=== PATIENT | male | born 1965 | race Caucasian/White ===

== ENCOUNTER 2018-07-13 07:14 | Inpatient (IN) | payer MEDICAID ==
[2018-07-13] MEDS: ASPIRIN 325 MG TAB PO (07:40)
[2018-07-13] MEDS: NITROGLYCERIN (SL) 0.4 MG TAB SL ×2 (07:40→16:36)
[2018-07-13 07:53] LABS: ADD MAN DIFF? NO
[2018-07-13 08:00] LABS: BASOPHIL # 0.1 10^3/ul (0.0-0.1); EOSINOPHILS # 0.3 10^3/ul (0.0-0.5); EOSINOPHILS % 6.1 % (0.0-7.0); HEMATOCRIT 39.1 % (42.0-52.0); HEMOGLOBIN 13.6 g/dl (14.0-18.0); LYMPHOCYTES # 1.7 10^3/ul (0.8-2.9); LYMPHOCYTES % 34.3 % (15.0-51.0); MEAN CORPUSCULAR HEMOGLOBIN 32.9 pg (29.0-33.0); MEAN CORPUSCULAR HGB CONC 34.8 g/dl (32.0-37.0); MEAN CORPUSCULAR VOLUME 94.7 fl (82.0-101.0); MEAN PLATELET VOLUME 8.4 fl (7.4-10.4); MONOCYTE # 0.8 10^3/ul (0.3-0.9); MONOCYTES % 16.6 % (0.0-11.0); NEUTROPHIL # 2.1 10^3/ul (1.6-7.5); NEUTROPHILS % 41.4 % (39.0-77.0); PLATELET COUNT 114 10^3/UL (140-415); RED BLOOD COUNT 4.13 10^6/ul (4.70-6.10); RED CELL DISTRIBUTION WIDTH 12.4 % (11.5-14.5)
[2018-07-13 08:00] LABS: WHITE BLOOD COUNT 5.1 10^3/ul (4.8-10.8)
[2018-07-13 08:17] LABS: ALANINE AMINOTRANSFERASE 89 IU/L (13-69); ALBUMIN 4.8 g/dl (3.3-4.9); ALBUMIN/GLOBULIN RATIO 1.71; ALKALINE PHOSPHATASE 69 IU/L (42-121); ANION GAP 16 (5-13); ASPARTATE AMINO TRANSFERASE 117 IU/L (15-46); BILIRUBIN,INDIRECT 0.4 mg/dl (0-1.1); BILIRUBIN,TOTAL 0.4 mg/dl (0.2-1.3); BLOOD UREA NITROGEN 8 mg/dl (7-20); CALCIUM 9.3 mg/dl (8.4-10.2); CARBON DIOXIDE 26 mmol/L (21-31); CHLORIDE 96 mmol/L (97-110); CREATINE KINASE 104 IU/L (23-200); CREATININE 0.64 mg/dl (0.61-1.24); Estimated GFR > 60 mL/min (>60); GLUCOSE 103 mg/dl (70-220); LIPASE 294 U/L (23-300); POTASSIUM 4.1 mmol/L (3.5-5.1); SODIUM 138 mmol/L (135-144); TOTAL PROTEIN 7.6 g/dl (6.1-8.1)
[2018-07-13 08:18] LABS: INR 0.92; PROTIME 12.4 Sec (11.9-14.9)
[2018-07-13 08:19] LABS: PARTIAL THROMBOPLASTIN TIME 26.8 Sec (23.0-35.0)
[2018-07-13 08:29] LABS: B-TYPE NATRIURETIC PEPTIDE 28 PG/ML (0-125); CK-MB 1.06 ng/ml (0.0-2.4); TROPONIN-I < 0.012 ng/ml (0.000-0.120)
[2018-07-13 09:42] LABS: ADD UMIC NO; UR ASCORBIC ACID NEGATIVE (NEGATIVE); UR BILIRUBIN (Dip) NEGATIVE (NEGATIVE); UR BLOOD (Dip) NEGATIVE (NEGATIVE); UR CLARITY CLEAR (CLEAR); UR COLOR COLORLESS (YELLOW); UR GLUCOSE (Dip) NEGATIVE (NEGATIVE); UR KETONES (Dip) NEGATIVE (NEGATIVE); UR LEUKOCYTE ESTERASE (Dip) NEGATIVE Leu/ul (NEGATIVE); UR NITRITE (Dip) NEGATIVE (NEGATIVE); UR SPECIFIC GRAVITY (Dip) 1.002 (1.003-1.030); UR TOTAL PROTEIN (Dip) NEGATIVE (NEGATIVE); UR UROBILINOGEN (Dip) NEGATIVE (NEGATIVE)
[2018-07-13 10:11] LABS: AMPHETAMINE/METHAMPHETAMINE Negative (NEGATIVE); BENZODIAZEPINES Negative (NEGATIVE); CANNABINOIDS Positive (NEGATIVE); COCAINE Negative (NEGATIVE); OPIATES Negative (NEGATIVE)
[2018-07-13 10:28] LABS: BARBITURATES Negative (NEGATIVE)
[2018-07-13 10:53] LABS: SALICYLATE 1.4 mg/dl (5.0-30.0)
[2018-07-13 10:57] LABS: ACETAMINOPHEN < 10.0 ug/ml (10.0-30.0)
[2018-07-13] MEDS: SOD CHLORIDE 0.9% 1,000 ML IV (16:22)
[2018-07-13] MEDS: LORAZEPAM 2 MG INJ IV ×2 (16:22→19:51)
[2018-07-13] MEDS: MAGNESIUM SULFATE 2 GM, MULTIVITAMINS 10 ML, THIAMINE 100 MG, FOLIC ACID 1 MG in SOD CH... IV (16:35)
[2018-07-13] MEDS ORDERED: ACETAMINOPHEN 325 MG TAB PO ×2 (17:00→18:30)
[2018-07-13] MEDS ORDERED: ONDANSETRON 4 MG INJ IV ×2 (17:00→18:30)
[2018-07-13] MEDS ORDERED: HYDROCODONE/APAP (5/325) TAB PO (18:30)
[2018-07-13] MEDS ORDERED: NA PHOSPHATE/BIPHOS 133 ML ENEMA PR (18:30)
[2018-07-13] MEDS ORDERED: NACL 0.9% 3 ML SYG IV (18:30)
[2018-07-13] MEDS ORDERED: ALBUTEROL/IPRATROPIUM (NEB) 3 ML AMP HHN (18:30)
[2018-07-13] MEDS ORDERED: DOCUSATE SODIUM 100 MG CAP PO (18:30)
[2018-07-13] MEDS ORDERED: morphine 2 MG INJ IV (18:30)
[2018-07-13] MEDS ORDERED: NITROGLYCERIN (SL) 0.4 MG TAB SL (18:30)
[2018-07-13] MEDS ORDERED: MAGNESIUM HYDROXIDE 30ML CUP PO (18:30)
[2018-07-13 19:24] LABS: FREE T4 (FREE THYROXINE) 0.79 ng/dl (0.64-1.79)
[2018-07-13 20:58] LABS: TROPONIN-I < 0.012 ng/ml (0.000-0.120)
[2018-07-13] MEDS: HEPARIN 5,000 UNIT/1 ML VIAL SC (21:00)
[2018-07-13] MEDS: SOD CHLORIDE 0.45% 1,000 ML IV (21:30)
[2018-07-13] MEDS: MIRTAZAPINE 15 MG TAB PO (21:31)
[2018-07-13] MEDS: CHLORDIAZEPOXIDE 25 MG CAP PO (21:31)
[2018-07-14] MEDS: hydrALAzine 20 MG INJ IV ×2 (00:21→07:36)
[2018-07-14 03:38] LABS: ADD MAN DIFF? NO
[2018-07-14 04:03] LABS: WHITE BLOOD COUNT 6.1 10^3/ul (4.8-10.8)
[2018-07-14 04:03] LABS: BASOPHILS % 0.5 % (0.0-2.0); EOSINOPHILS # 0.1 10^3/ul (0.0-0.5); EOSINOPHILS % 1.2 % (0.0-7.0); HEMATOCRIT 40.7 % (42.0-52.0); HEMOGLOBIN 14.3 g/dl (14.0-18.0); LYMPHOCYTES # 0.7 10^3/ul (0.8-2.9); LYMPHOCYTES % 11.2 % (15.0-51.0); MEAN CORPUSCULAR HEMOGLOBIN 33.2 pg (29.0-33.0); MEAN CORPUSCULAR HGB CONC 35.1 g/dl (32.0-37.0); MEAN CORPUSCULAR VOLUME 94.4 fl (82.0-101.0); MEAN PLATELET VOLUME 8.6 fl (7.4-10.4); MONOCYTE # 0.8 10^3/ul (0.3-0.9); MONOCYTES % 13.4 % (0.0-11.0); NEUTROPHIL # 4.4 10^3/ul (1.6-7.5); NEUTROPHILS % 73.4 % (39.0-77.0); PLATELET COUNT 129 10^3/UL (140-415); RED BLOOD COUNT 4.31 10^6/ul (4.70-6.10); RED CELL DISTRIBUTION WIDTH 12.4 % (11.5-14.5)
[2018-07-14 04:08] LABS: TRIGLYCERIDES 43 mg/dl (0-149)
[2018-07-14 04:08] LABS: CHOLESTEROL 278 mg/dl (100-200)
[2018-07-14 04:10] LABS: ANION GAP 9 (5-13); BLOOD UREA NITROGEN 7 mg/dl (7-20); CALCIUM 8.9 mg/dl (8.4-10.2); CARBON DIOXIDE 26 mmol/L (21-31); CHLORIDE 99 mmol/L (97-110); CREATININE 0.61 mg/dl (0.61-1.24); Estimated GFR > 60 mL/min (>60); GLUCOSE 101 mg/dl (70-220); MAGNESIUM 2.3 mg/dl (1.7-2.5); PHOSPHORUS 3.7 mg/dl (2.5-4.9); POTASSIUM 3.9 mmol/L (3.5-5.1); SODIUM 134 mmol/L (135-144)
[2018-07-14 04:21] LABS: TROPONIN-I < 0.012 ng/ml (0.000-0.120)
[2018-07-14 04:30] LABS: CHOL/HDL RATIO 2.1 RATIO; HDL CHOLESTEROL 128 mg/dl (28-71); LDL CHOLESTEROL,CALCULATED 141 mg/dl
[2018-07-14 05:01] LABS: HEMOGLOBIN A1C 5.2 % (0-5.9)
[2018-07-14] MEDS: PANTOPRAZOLE (EC) 40 MG TAB PO (05:08)
[2018-07-14] MEDS: SOD CHLORIDE 0.45% 1,000 ML IV ×2 (07:43→17:18)
[2018-07-14] MEDS: LORAZEPAM 2 MG INJ IV ×3 (08:51→23:33)
[2018-07-14] MEDS: CHLORDIAZEPOXIDE 25 MG CAP PO ×3 (08:51→20:10)
[2018-07-14] MEDS: MULTIVITAMINS 10 ML, THIAMINE 100 MG, FOLIC ACID 1 MG in SOD CHLORIDE 0.9% 1,000 ML IVPB (08:51)
[2018-07-14] MEDS: HEPARIN 5,000 UNIT/1 ML VIAL SC ×2 (08:54→20:15)
[2018-07-14 12:47] LABS: TROPONIN-I < 0.012 ng/ml (0.000-0.120)
[2018-07-14] MEDS: SERTRALINE 50 MG TAB PO (17:13)
[2018-07-14] MEDS ORDERED: HEPARIN 5,000 UNIT/0.5 ML VIAL (20:03)
[2018-07-14] MEDS: MIRTAZAPINE 15 MG TAB PO (20:10)
[2018-07-15] MEDS: PANTOPRAZOLE (EC) 40 MG TAB PO ×2 (05:07→05:14)
[2018-07-15] MEDS: hydrALAzine 20 MG INJ IV (05:14)
[2018-07-15 06:17] LABS: ADD MAN DIFF? NO
[2018-07-15 06:32] LABS: WHITE BLOOD COUNT 5.1 10^3/ul (4.8-10.8)
[2018-07-15 06:32] LABS: BASOPHILS % 0.4 % (0.0-2.0); EOSINOPHILS # 0.2 10^3/ul (0.0-0.5); EOSINOPHILS % 2.9 % (0.0-7.0); HEMOGLOBIN 13.7 g/dl (14.0-18.0); LYMPHOCYTES % 19.9 % (15.0-51.0); MEAN CORPUSCULAR HEMOGLOBIN 32.9 pg (29.0-33.0); MEAN CORPUSCULAR HGB CONC 35.1 g/dl (32.0-37.0); MEAN CORPUSCULAR VOLUME 93.8 fl (82.0-101.0); MEAN PLATELET VOLUME 9.2 fl (7.4-10.4); MONOCYTE # 0.9 10^3/ul (0.3-0.9); MONOCYTES % 16.8 % (0.0-11.0); NEUTROPHIL # 3.1 10^3/ul (1.6-7.5); NEUTROPHILS % 59.8 % (39.0-77.0); PLATELET COUNT 151 10^3/UL (140-415); RED BLOOD COUNT 4.16 10^6/ul (4.70-6.10); RED CELL DISTRIBUTION WIDTH 12.4 % (11.5-14.5)
[2018-07-15 06:37] LABS: ANION GAP 10 (5-13); BLOOD UREA NITROGEN 8 mg/dl (7-20); CALCIUM 9.2 mg/dl (8.4-10.2); CARBON DIOXIDE 23 mmol/L (21-31); CHLORIDE 101 mmol/L (97-110); CREATININE 0.67 mg/dl (0.61-1.24); Estimated GFR > 60 mL/min (>60); GLUCOSE 108 mg/dl (70-220); POTASSIUM 3.7 mmol/L (3.5-5.1); SODIUM 134 mmol/L (135-144)
[2018-07-15] MEDS: LORAZEPAM 2 MG INJ IV ×2 (07:33→21:16)
[2018-07-15] MEDS ORDERED: HEPARIN 5,000 UNIT/0.5 ML VIAL ×2 (08:56→19:44)
[2018-07-15] MEDS: SERTRALINE 50 MG TAB PO (09:00)
[2018-07-15] MEDS: CHLORDIAZEPOXIDE 25 MG CAP PO ×3 (09:00→19:59)
[2018-07-15] MEDS: MULTIVITAMINS 10 ML, THIAMINE 100 MG, FOLIC ACID 1 MG in SOD CHLORIDE 0.9% 1,000 ML IVPB (09:01)
[2018-07-15] MEDS: HEPARIN 5,000 UNIT/1 ML VIAL SC ×2 (09:05→20:14)
[2018-07-15] MEDS: SOD CHLORIDE 0.45% 1,000 ML IV ×2 (10:23→17:36)
[2018-07-15] MEDS: AMLODIPINE 5 MG TAB PO (12:05)
[2018-07-15] MEDS: MIRTAZAPINE 15 MG TAB PO (20:00)
[2018-07-16] MEDS: PANTOPRAZOLE (EC) 40 MG TAB PO (06:06)
[2018-07-16 06:16] LABS: ADD MAN DIFF? NO
[2018-07-16 06:22] LABS: BASOPHILS % 0.7 % (0.0-2.0); EOSINOPHILS # 0.2 10^3/ul (0.0-0.5); EOSINOPHILS % 3.7 % (0.0-7.0); HEMATOCRIT 37.2 % (42.0-52.0); HEMOGLOBIN 12.9 g/dl (14.0-18.0); LYMPHOCYTES % 18.3 % (15.0-51.0); MEAN CORPUSCULAR HEMOGLOBIN 32.7 pg (29.0-33.0); MEAN CORPUSCULAR HGB CONC 34.7 g/dl (32.0-37.0); MEAN CORPUSCULAR VOLUME 94.4 fl (82.0-101.0); MEAN PLATELET VOLUME 8.9 fl (7.4-10.4); MONOCYTE # 0.9 10^3/ul (0.3-0.9); MONOCYTES % 16.6 % (0.0-11.0); NEUTROPHIL # 3.3 10^3/ul (1.6-7.5); NEUTROPHILS % 60.1 % (39.0-77.0); PLATELET COUNT 146 10^3/UL (140-415); RED BLOOD COUNT 3.94 10^6/ul (4.70-6.10); RED CELL DISTRIBUTION WIDTH 11.9 % (11.5-14.5)
[2018-07-16 06:22] LABS: WHITE BLOOD COUNT 5.4 10^3/ul (4.8-10.8)
[2018-07-16 06:55] LABS: ANION GAP 10 (5-13); BLOOD UREA NITROGEN 8 mg/dl (7-20); CARBON DIOXIDE 24 mmol/L (21-31); CHLORIDE 102 mmol/L (97-110); CREATININE 0.69 mg/dl (0.61-1.24); Estimated GFR > 60 mL/min (>60); GLUCOSE 101 mg/dl (70-220); POTASSIUM 3.7 mmol/L (3.5-5.1); SODIUM 136 mmol/L (135-144)
[2018-07-16] MEDS ORDERED: HEPARIN 5,000 UNIT/0.5 ML VIAL ×2 (07:57→20:02)
[2018-07-16] MEDS: CHLORDIAZEPOXIDE 25 MG CAP PO ×3 (08:43→20:12)
[2018-07-16] MEDS: LORAZEPAM 2 MG INJ IV (08:43)
[2018-07-16] MEDS: SERTRALINE 50 MG TAB PO (08:44)
[2018-07-16] MEDS: AMLODIPINE 5 MG TAB PO (08:44)
[2018-07-16] MEDS: HEPARIN 5,000 UNIT/1 ML VIAL SC ×2 (08:51→20:11)
[2018-07-16] MEDS: MULTIVITAMINS 10 ML, THIAMINE 100 MG, FOLIC ACID 1 MG in SOD CHLORIDE 0.9% 1,000 ML IVPB (10:35)
[2018-07-16] MEDS: SOD CHLORIDE 0.45% 1,000 ML IV (16:53)
[2018-07-16] MEDS: MIRTAZAPINE 15 MG TAB PO (20:12)
[2018-07-16] MEDS: hydrALAzine 20 MG INJ IV (20:12)
[2018-07-17] MEDS: SOD CHLORIDE 0.45% 1,000 ML IV (04:43)
[2018-07-17] MEDS: PANTOPRAZOLE (EC) 40 MG TAB PO (05:49)
[2018-07-17 06:41] LABS: ADD MAN DIFF? NO
[2018-07-17 06:46] LABS: WHITE BLOOD COUNT 6.1 10^3/ul (4.8-10.8)
[2018-07-17 06:46] LABS: BASOPHILS % 0.7 % (0.0-2.0); EOSINOPHILS # 0.2 10^3/ul (0.0-0.5); EOSINOPHILS % 3.4 % (0.0-7.0); HEMATOCRIT 36.8 % (42.0-52.0); HEMOGLOBIN 12.9 g/dl (14.0-18.0); MEAN CORPUSCULAR HEMOGLOBIN 33.2 pg (29.0-33.0); MEAN CORPUSCULAR HGB CONC 35.1 g/dl (32.0-37.0); MEAN CORPUSCULAR VOLUME 94.6 fl (82.0-101.0); MEAN PLATELET VOLUME 8.4 fl (7.4-10.4); MONOCYTE # 1.1 10^3/ul (0.3-0.9); MONOCYTES % 18.3 % (0.0-11.0); NEUTROPHIL # 3.7 10^3/ul (1.6-7.5); NEUTROPHILS % 60.9 % (39.0-77.0); PLATELET COUNT 157 10^3/UL (140-415); RED BLOOD COUNT 3.89 10^6/ul (4.70-6.10); RED CELL DISTRIBUTION WIDTH 12.3 % (11.5-14.5)
[2018-07-17 07:08] LABS: ANION GAP 8 (5-13); BLOOD UREA NITROGEN 6 mg/dl (7-20); CARBON DIOXIDE 26 mmol/L (21-31); CHLORIDE 101 mmol/L (97-110); CREATININE 0.79 mg/dl (0.61-1.24); Estimated GFR > 60 mL/min (>60); GLUCOSE 106 mg/dl (70-220); POTASSIUM 3.8 mmol/L (3.5-5.1); SODIUM 135 mmol/L (135-144)
[2018-07-17] MEDS ORDERED: HEPARIN 5,000 UNIT/0.5 ML VIAL (08:01)
[2018-07-17] MEDS: MULTIVITAMINS 10 ML, THIAMINE 100 MG, FOLIC ACID 1 MG in SOD CHLORIDE 0.9% 1,000 ML IVPB (08:23)
[2018-07-17] MEDS: CHLORDIAZEPOXIDE 25 MG CAP PO ×2 (08:23→12:33)
[2018-07-17] MEDS: SERTRALINE 50 MG TAB PO (08:23)
[2018-07-17] MEDS: AMLODIPINE 5 MG TAB PO (08:24)
[2018-07-17] MEDS: HEPARIN 5,000 UNIT/1 ML VIAL SC (08:29)
== END 2018-07-17 15:59 | disposition home or self-care (01) | DRG 897 ==
LOC: E/R 07:14 → TEL 16:38
DX: F10.239 Alcohol dependence with withdrawal, unspecified (principal); R45.851 Suicidal ideations; F33.9 Major depressive disorder, recurrent, unspecified; M94.0 Chondrocostal junction syndrome [Tietze]; Y90.7 Blood alcohol level of 200-239 mg/100 ml; F10.229 Alcohol dependence with intoxication, unspecified; Z59.0 Homelessness; I10 Essential (primary) hypertension
CPT/HCPCS: 36415; 71045; 80048; 80053; 80061; 80307; 81003; 82550; 82553; 83036; 83690; 83735; 83880; 84100; 84439; 84443; 84484; 85025; 85610; 85730; 87086; 93005; 96374; 96375; 97161; 99285-25

== ENCOUNTER 2018-09-29 16:57 | Inpatient (IN) | payer MEDICAID ==
[2018-09-29] MEDS: morphine 4 MG/ML VIAL IV (18:44)
[2018-09-29 18:47] LABS: ADD MAN DIFF? NO
[2018-09-29] MEDS: LABETALOL HCL 20MG INJ IV (18:47)
[2018-09-29 19:06] LABS: ALANINE AMINOTRANSFERASE 127 IU/L (13-69); ALBUMIN 5.1 g/dl (3.3-4.9); ALBUMIN/GLOBULIN RATIO 1.27; ALKALINE PHOSPHATASE 104 IU/L (42-121); ANION GAP 15 (5-13); ASPARTATE AMINO TRANSFERASE 174 IU/L (15-46); BILIRUBIN,INDIRECT 0.9 mg/dl (0-1.1); BILIRUBIN,TOTAL 0.9 mg/dl (0.2-1.3); BLOOD UREA NITROGEN 5 mg/dl (7-20); CALCIUM 10.6 mg/dl (8.4-10.2); CARBON DIOXIDE 29 mmol/L (21-31); CHLORIDE 90 mmol/L (97-110); CREATININE 0.65 mg/dl (0.61-1.24); Estimated GFR > 60 mL/min (>60); GLUCOSE 138 mg/dl (70-220); POTASSIUM 3.4 mmol/L (3.5-5.1); SODIUM 134 mmol/L (135-144); TOTAL PROTEIN 9.1 g/dl (6.1-8.1)
[2018-09-29 19:17] LABS: B-TYPE NATRIURETIC PEPTIDE 379 PG/ML (0-125); TROPONIN-I < 0.012 ng/ml (0.000-0.120)
[2018-09-29 19:29] LABS: ABNORMAL IP MESSAGE 1; BASOPHILS % 0.3 % (0.0-2.0); EOSINOPHILS % 0.1 % (0.0-7.0); HEMATOCRIT 41.5 % (42.0-52.0); HEMOGLOBIN 14.7 g/dl (14.0-18.0); LYMPHOCYTES # 0.3 10^3/ul (0.8-2.9); LYMPHOCYTES % 4.2 % (15.0-51.0); MEAN CORPUSCULAR HEMOGLOBIN 32.6 pg (29.0-33.0); MEAN CORPUSCULAR HGB CONC 35.4 g/dl (32.0-37.0); MEAN PLATELET VOLUME 8.9 fl (7.4-10.4); MONOCYTE # 1.1 10^3/ul (0.3-0.9); MONOCYTES % 14.2 % (0.0-11.0); NEUTROPHILS % 80.8 % (39.0-77.0); PLATELET COUNT 176 10^3/UL (140-415); POSITIVE DIFF @See below; RED BLOOD COUNT 4.51 10^6/ul (4.70-6.10)
[2018-09-29 19:29] LABS: WHITE BLOOD COUNT 7.4 10^3/ul (4.8-10.8)
[2018-09-29 19:30] LABS: INR 0.93; PARTIAL THROMBOPLASTIN TIME 25.8 Sec (23.0-35.0); PROTIME 12.6 Sec (11.9-14.9)
[2018-09-29] MEDS: IOHEXOL 300MG/ML 150 ML BTL (20:44)
[2018-09-29] MEDS: SOD CHLORIDE 0.9% 100 ML (20:44)
[2018-09-29] MEDS ORDERED: NACL 0.9% 3 ML SYG IV (22:00)
[2018-09-29] MEDS ORDERED: ONDANSETRON 4 MG INJ IV ×2 (22:00)
[2018-09-29] MEDS ORDERED: morphine 2 MG INJ IV (22:00)
[2018-09-29] MEDS ORDERED: NITROGLYCERIN (SL) 0.4 MG TAB SL (22:00)
[2018-09-29] MEDS ORDERED: ACETAMINOPHEN 325 MG TAB PO (22:00)
[2018-09-29] MEDS ORDERED: DOCUSATE SODIUM 100 MG CAP PO (22:00)
[2018-09-29] MEDS ORDERED: BISACODYL (EC) 5 MG TAB PO (22:00)
[2018-09-29] MEDS: SOD CHLORIDE 0.9% 250 ML IV (22:06)
[2018-09-29] MEDS: hydrALAzine 20 MG INJ IV (22:27)
[2018-09-29 22:31] LABS: ETHANOL < 10.0 mg/dl (0-0)
[2018-09-29] MEDS: CHLORDIAZEPOXIDE 25 MG CAP PO (23:51)
[2018-09-30 00:54] LABS: CREATINE KINASE 420 IU/L (23-200)
[2018-09-30 01:05] LABS: CK INDEX 0.8; TROPONIN-I < 0.012 ng/ml (0.000-0.120)
[2018-09-30 01:06] LABS: CK-MB 3.49 ng/ml (0.0-2.4)
[2018-09-30] MEDS: LISINOPRIL 20 MG TAB PO (01:07)
[2018-09-30] MEDS: MULTIVITAMINS 10 ML, FOLIC ACID 1 MG in SOD CHLORIDE 0.9% 1,000 ML IVPB ×2 (01:09→08:11)
[2018-09-30] MEDS: morphine 4 MG/ML VIAL IV ×3 (01:14→20:18)
[2018-09-30 06:05] LABS: ADD MAN DIFF? NO
[2018-09-30 06:12] LABS: WHITE BLOOD COUNT 6.3 10^3/ul (4.8-10.8)
[2018-09-30 06:12] LABS: BASOPHILS % 0.2 % (0.0-2.0); EOSINOPHILS # 0.1 10^3/ul (0.0-0.5); EOSINOPHILS % 1.1 % (0.0-7.0); HEMATOCRIT 37.9 % (42.0-52.0); HEMOGLOBIN 13.4 g/dl (14.0-18.0); LYMPHOCYTES # 0.7 10^3/ul (0.8-2.9); LYMPHOCYTES % 10.3 % (15.0-51.0); MEAN CORPUSCULAR HGB CONC 35.4 g/dl (32.0-37.0); MEAN CORPUSCULAR VOLUME 93.3 fl (82.0-101.0); MEAN PLATELET VOLUME 8.8 fl (7.4-10.4); MONOCYTE # 1.1 10^3/ul (0.3-0.9); MONOCYTES % 17.6 % (0.0-11.0); NEUTROPHIL # 4.4 10^3/ul (1.6-7.5); NEUTROPHILS % 70.5 % (39.0-77.0); PLATELET COUNT 143 10^3/UL (140-415); RED BLOOD COUNT 4.06 10^6/ul (4.70-6.10)
[2018-09-30 06:34] LABS: CREATINE KINASE 338 IU/L (23-200)
[2018-09-30 06:46] LABS: CK INDEX 0.6; TROPONIN-I 0.013 ng/ml (0.000-0.120)
[2018-09-30 06:50] LABS: ALANINE AMINOTRANSFERASE 97 IU/L (13-69); ALBUMIN/GLOBULIN RATIO 1.25; ALKALINE PHOSPHATASE 64 IU/L (42-121); ANION GAP 15 (5-13); ASPARTATE AMINO TRANSFERASE 98 IU/L (15-46); BILIRUBIN,INDIRECT 1.5 mg/dl (0-1.1); BILIRUBIN,TOTAL 1.5 mg/dl (0.2-1.3); BLOOD UREA NITROGEN 4 mg/dl (7-20); CALCIUM 9.6 mg/dl (8.4-10.2); CARBON DIOXIDE 31 mmol/L (21-31); CHLORIDE 91 mmol/L (97-110); CHOL/HDL RATIO 2.5 RATIO; CHOLESTEROL 221 mg/dl (100-200); CREATININE 0.58 mg/dl (0.61-1.24); Estimated GFR > 60 mL/min (>60); GLUCOSE 111 mg/dl (70-220); HDL CHOLESTEROL 88 mg/dl (28-71); LDL CHOLESTEROL,CALCULATED 120 mg/dl; POTASSIUM 3.1 mmol/L (3.5-5.1); SODIUM 137 mmol/L (135-144); TOTAL PROTEIN 7.2 g/dl (6.1-8.1); TRIGLYCERIDES 65 mg/dl (0-149)
[2018-09-30 07:22] LABS: HEMOGLOBIN A1C 5.3 % (0-5.9)
[2018-09-30] MEDS: POTASSIUM CHLORIDE (SR) 20 MEQ TAB PO (07:47)
[2018-09-30] MEDS: THIAMINE 100 MG TAB PO (08:29)
[2018-09-30] MEDS: MULTIVITAMINS THERAPEUTIC TAB PO (08:29)
[2018-09-30] MEDS: LISINOPRIL 10 MG TAB PO (08:30)
[2018-09-30] MEDS: FOLIC ACID 1 MG TAB PO (08:30)
[2018-09-30] MEDS: SERTRALINE 50 MG TAB PO (08:30)
[2018-09-30] MEDS: CHLORDIAZEPOXIDE 25 MG CAP PO ×4 (08:31→22:55)
[2018-09-30] MEDS: ENOXAPARIN 40 MG/0.4 ML SYG SC (08:41)
[2018-09-30] MEDS: ACETAMINOPHEN 325 MG TAB PO (13:04)
[2018-09-30] MEDS: MIRTAZAPINE 15 MG TAB PO (20:17)
[2018-10-01 06:33] LABS: ADD MAN DIFF? NO
[2018-10-01 06:52] LABS: BASOPHILS % 0.2 % (0.0-2.0); EOSINOPHILS # 0.1 10^3/ul (0.0-0.5); HEMOGLOBIN 12.7 g/dl (14.0-18.0); LYMPHOCYTES # 0.8 10^3/ul (0.8-2.9); LYMPHOCYTES % 12.2 % (15.0-51.0); MEAN CORPUSCULAR HEMOGLOBIN 32.7 pg (29.0-33.0); MEAN CORPUSCULAR HGB CONC 34.3 g/dl (32.0-37.0); MEAN CORPUSCULAR VOLUME 95.4 fl (82.0-101.0); MEAN PLATELET VOLUME 9.3 fl (7.4-10.4); MONOCYTE # 0.9 10^3/ul (0.3-0.9); NEUTROPHIL # 4.7 10^3/ul (1.6-7.5); NEUTROPHILS % 71.1 % (39.0-77.0); PLATELET COUNT 144 10^3/UL (140-415); RED BLOOD COUNT 3.88 10^6/ul (4.70-6.10); RED CELL DISTRIBUTION WIDTH 11.9 % (11.5-14.5)
[2018-10-01 06:52] LABS: WHITE BLOOD COUNT 6.6 10^3/ul (4.8-10.8)
[2018-10-01 07:32] LABS: ALANINE AMINOTRANSFERASE 73 IU/L (13-69); ALBUMIN 3.8 g/dl (3.3-4.9); ALBUMIN/GLOBULIN RATIO 1.18; ALKALINE PHOSPHATASE 68 IU/L (42-121); ANION GAP 12 (5-13); ASPARTATE AMINO TRANSFERASE 77 IU/L (15-46); BLOOD UREA NITROGEN 5 mg/dl (7-20); CALCIUM 9.5 mg/dl (8.4-10.2); CARBON DIOXIDE 29 mmol/L (21-31); CHLORIDE 95 mmol/L (97-110); CREATININE 0.82 mg/dl (0.61-1.24); Estimated GFR > 60 mL/min (>60); GLUCOSE 104 mg/dl (70-220); POTASSIUM 3.4 mmol/L (3.5-5.1); SODIUM 136 mmol/L (135-144)
[2018-10-01 07:40] LABS: MAGNESIUM 1.9 mg/dl (1.7-2.5)
[2018-10-01 07:40] LABS: PHOSPHORUS 4.3 mg/dl (2.5-4.9)
[2018-10-01] MEDS: FOLIC ACID 1 MG TAB PO (08:24)
[2018-10-01] MEDS: MULTIVITAMINS THERAPEUTIC TAB PO (08:24)
[2018-10-01] MEDS: CHLORDIAZEPOXIDE 25 MG CAP PO ×5 (08:24→23:51)
[2018-10-01] MEDS: SERTRALINE 50 MG TAB PO (08:25)
[2018-10-01] MEDS: LISINOPRIL 10 MG TAB PO (08:25)
[2018-10-01] MEDS: THIAMINE 100 MG TAB PO (08:25)
[2018-10-01] MEDS: ENOXAPARIN 40 MG/0.4 ML SYG SC (08:32)
[2018-10-01] MEDS: morphine 4 MG/ML VIAL IV ×2 (14:55→21:00)
[2018-10-01] MEDS: POTASSIUM CHLORIDE (SR) 20 MEQ TAB PO (16:10)
[2018-10-01] MEDS: AMLODIPINE 5 MG TAB PO (16:11)
[2018-10-01] MEDS: MIRTAZAPINE 15 MG TAB PO (20:59)
[2018-10-01] MEDS: CLOTRIMAZOLE 1% 30 GM CR TOP (20:59)
[2018-10-02 06:50] LABS: ADD MAN DIFF? NO
[2018-10-02 06:52] LABS: WHITE BLOOD COUNT 6.3 10^3/ul (4.8-10.8)
[2018-10-02 06:52] LABS: BASOPHILS % 0.5 % (0.0-2.0); EOSINOPHILS # 0.2 10^3/ul (0.0-0.5); HEMATOCRIT 39.2 % (42.0-52.0); HEMOGLOBIN 13.7 g/dl (14.0-18.0); LYMPHOCYTES % 15.2 % (15.0-51.0); MEAN CORPUSCULAR HEMOGLOBIN 33.2 pg (29.0-33.0); MEAN CORPUSCULAR HGB CONC 34.9 g/dl (32.0-37.0); MEAN CORPUSCULAR VOLUME 94.9 fl (82.0-101.0); MONOCYTE # 0.9 10^3/ul (0.3-0.9); MONOCYTES % 14.9 % (0.0-11.0); NEUTROPHIL # 4.2 10^3/ul (1.6-7.5); NEUTROPHILS % 65.9 % (39.0-77.0); PLATELET COUNT 147 10^3/UL (140-415); RED BLOOD COUNT 4.13 10^6/ul (4.70-6.10); RED CELL DISTRIBUTION WIDTH 11.9 % (11.5-14.5)
[2018-10-02 07:16] LABS: ALANINE AMINOTRANSFERASE 66 IU/L (13-69); ALBUMIN 3.9 g/dl (3.3-4.9); ALBUMIN/GLOBULIN RATIO 1.21; ALKALINE PHOSPHATASE 68 IU/L (42-121); ANION GAP 11 (5-13); ASPARTATE AMINO TRANSFERASE 74 IU/L (15-46); BILIRUBIN,INDIRECT 0.7 mg/dl (0-1.1); BILIRUBIN,TOTAL 0.7 mg/dl (0.2-1.3); BLOOD UREA NITROGEN 7 mg/dl (7-20); CALCIUM 9.5 mg/dl (8.4-10.2); CARBON DIOXIDE 28 mmol/L (21-31); CHLORIDE 97 mmol/L (97-110); CREATININE 0.75 mg/dl (0.61-1.24); Estimated GFR > 60 mL/min (>60); GLUCOSE 107 mg/dl (70-220); POTASSIUM 3.7 mmol/L (3.5-5.1); SODIUM 136 mmol/L (135-144); TOTAL PROTEIN 7.1 g/dl (6.1-8.1)
[2018-10-02] MEDS: MULTIVITAMINS THERAPEUTIC TAB PO (08:22)
[2018-10-02] MEDS: SERTRALINE 50 MG TAB PO (08:22)
[2018-10-02] MEDS: THIAMINE 100 MG TAB PO (08:22)
[2018-10-02] MEDS: CLOTRIMAZOLE 1% 30 GM CR TOP ×2 (08:23→20:22)
[2018-10-02] MEDS: FOLIC ACID 1 MG TAB PO (08:23)
[2018-10-02] MEDS: AMMONIUM LACTATE 12% 225 GM LOT TOP (08:26)
[2018-10-02] MEDS: CHLORDIAZEPOXIDE 25 MG CAP PO ×3 (08:26→20:21)
[2018-10-02] MEDS: AMLODIPINE 5 MG TAB PO (08:26)
[2018-10-02] MEDS: ENOXAPARIN 40 MG/0.4 ML SYG SC (08:30)
[2018-10-02] MEDS ORDERED: LISINOPRIL 20 MG TAB PO (09:00)
[2018-10-02] MEDS: morphine 4 MG/ML VIAL IV ×3 (12:55→21:53)
[2018-10-02] MEDS: MIRTAZAPINE 15 MG TAB PO (20:21)
[2018-10-03] MEDS: CLOTRIMAZOLE 1% 30 GM CR TOP ×2 (09:00→21:48)
[2018-10-03] MEDS: AMMONIUM LACTATE 12% 225 GM LOT TOP (09:00)
[2018-10-03] MEDS: MULTIVITAMINS THERAPEUTIC TAB PO (10:22)
[2018-10-03] MEDS: SERTRALINE 50 MG TAB PO (10:22)
[2018-10-03] MEDS: AMLODIPINE 5 MG TAB PO (10:23)
[2018-10-03] MEDS: FOLIC ACID 1 MG TAB PO (10:23)
[2018-10-03] MEDS: ENOXAPARIN 40 MG/0.4 ML SYG SC (10:32)
[2018-10-03] MEDS: LORAZEPAM 2 MG INJ IV (10:52)
[2018-10-03] MEDS: morphine LIQ (10 MG/5 ML) CUP PO ×2 (17:59→23:40)
[2018-10-03] MEDS: MIRTAZAPINE 15 MG TAB PO (21:47)
[2018-10-04] MEDS: CLOTRIMAZOLE 1% 30 GM CR TOP ×2 (09:00→20:34)
[2018-10-04] MEDS: AMMONIUM LACTATE 12% 225 GM LOT TOP (09:00)
[2018-10-04] MEDS: AMLODIPINE 5 MG TAB PO (09:18)
[2018-10-04] MEDS: MULTIVITAMINS THERAPEUTIC TAB PO (09:18)
[2018-10-04] MEDS: FOLIC ACID 1 MG TAB PO (09:18)
[2018-10-04] MEDS: SERTRALINE 50 MG TAB PO (09:18)
[2018-10-04] MEDS: morphine LIQ (10 MG/5 ML) CUP PO ×3 (09:19→18:05)
[2018-10-04] MEDS: ENOXAPARIN 40 MG/0.4 ML SYG SC (10:29)
[2018-10-04] MEDS: MIRTAZAPINE 15 MG TAB PO (20:34)
[2018-10-05] MEDS: FOLIC ACID 1 MG TAB PO (09:39)
[2018-10-05] MEDS: MULTIVITAMINS THERAPEUTIC TAB PO (09:39)
[2018-10-05] MEDS: SERTRALINE 50 MG TAB PO (09:39)
[2018-10-05] MEDS: AMLODIPINE 5 MG TAB PO (09:39)
[2018-10-05] MEDS: morphine LIQ (10 MG/5 ML) CUP PO ×4 (09:40→22:38)
[2018-10-05] MEDS: CLOTRIMAZOLE 1% 30 GM CR TOP ×2 (09:40→21:17)
[2018-10-05] MEDS: AMMONIUM LACTATE 12% 225 GM LOT TOP (09:40)
[2018-10-05] MEDS: ENOXAPARIN 40 MG/0.4 ML SYG SC (09:46)
[2018-10-05] MEDS: MIRTAZAPINE 15 MG TAB PO (21:15)
[2018-10-06] MEDS: morphine LIQ (10 MG/5 ML) CUP PO ×4 (05:42→20:17)
[2018-10-06] MEDS: FOLIC ACID 1 MG TAB PO (08:27)
[2018-10-06] MEDS: MULTIVITAMINS THERAPEUTIC TAB PO (08:27)
[2018-10-06] MEDS: SERTRALINE 50 MG TAB PO (08:27)
[2018-10-06] MEDS: AMLODIPINE 5 MG TAB PO (08:28)
[2018-10-06] MEDS: ENOXAPARIN 40 MG/0.4 ML SYG SC (08:28)
[2018-10-06] MEDS: CLOTRIMAZOLE 1% 30 GM CR TOP ×2 (08:32→20:20)
[2018-10-06] MEDS: AMMONIUM LACTATE 12% 225 GM LOT TOP (08:32)
[2018-10-06] MEDS: MIRTAZAPINE 15 MG TAB PO (20:19)
[2018-10-07] MEDS: morphine LIQ (10 MG/5 ML) CUP PO ×6 (00:20→21:34)
[2018-10-07] MEDS: ENOXAPARIN 40 MG/0.4 ML SYG SC (08:59)
[2018-10-07] MEDS: MULTIVITAMINS THERAPEUTIC TAB PO (08:59)
[2018-10-07] MEDS: SERTRALINE 50 MG TAB PO (08:59)
[2018-10-07] MEDS: FOLIC ACID 1 MG TAB PO (08:59)
[2018-10-07] MEDS: AMMONIUM LACTATE 12% 225 GM LOT TOP (09:00)
[2018-10-07] MEDS: AMLODIPINE 5 MG TAB PO (09:00)
[2018-10-07] MEDS: CLOTRIMAZOLE 1% 30 GM CR TOP ×2 (09:00→21:37)
[2018-10-07] MEDS: NEOMYC/POLYMYX/BACIT 30 GM OINT TOP (09:00)
[2018-10-07] MEDS: MIRTAZAPINE 15 MG TAB PO (21:34)
[2018-10-08] MEDS: morphine LIQ (10 MG/5 ML) CUP PO ×6 (01:34→23:33)
[2018-10-08] MEDS: ENOXAPARIN 40 MG/0.4 ML SYG SC (08:11)
[2018-10-08] MEDS: AMLODIPINE 5 MG TAB PO (08:12)
[2018-10-08] MEDS: NEOMYC/POLYMYX/BACIT 30 GM OINT TOP (08:12)
[2018-10-08] MEDS: MULTIVITAMINS THERAPEUTIC TAB PO (08:12)
[2018-10-08] MEDS: FOLIC ACID 1 MG TAB PO (08:12)
[2018-10-08] MEDS: SERTRALINE 50 MG TAB PO (08:12)
[2018-10-08] MEDS: CLOTRIMAZOLE 1% 30 GM CR TOP ×2 (08:13→20:42)
[2018-10-08] MEDS: AMMONIUM LACTATE 12% 225 GM LOT TOP (08:13)
[2018-10-08] MEDS: MIRTAZAPINE 15 MG TAB PO (20:41)
[2018-10-09] MEDS: morphine LIQ (10 MG/5 ML) CUP PO ×3 (06:00→14:49)
[2018-10-09] MEDS: ENOXAPARIN 40 MG/0.4 ML SYG SC (09:17)
[2018-10-09] MEDS: FOLIC ACID 1 MG TAB PO (09:21)
[2018-10-09] MEDS: SERTRALINE 50 MG TAB PO (09:21)
[2018-10-09] MEDS: MULTIVITAMINS THERAPEUTIC TAB PO (09:21)
[2018-10-09] MEDS: AMLODIPINE 5 MG TAB PO (09:22)
[2018-10-09] MEDS: CLOTRIMAZOLE 1% 30 GM CR TOP (10:00)
[2018-10-09] MEDS: NEOMYC/POLYMYX/BACIT 30 GM OINT TOP (10:00)
[2018-10-09] MEDS: AMMONIUM LACTATE 12% 225 GM LOT TOP (10:00)
== END 2018-10-09 17:20 | disposition home or self-care (01) | DRG 313 ==
LOC: E/R 16:57 → PP2 10-05 13:23 → TEL 21:51
PROC: B40D1ZZ Plain Radiography of Aorta and Bilateral Lower Extremity Arteries using Low Osmolar Contrast (ICD-10-PCS; 2018-09-29)
PROC: 0HBMXZX Excision of Right Foot Skin, External Approach, Diagnostic (ICD-10-PCS; principal; 2018-10-01)
DX: R07.89 Other chest pain (principal); F10.239 Alcohol dependence with withdrawal, unspecified; I16.0 Hypertensive urgency; I10 Essential (primary) hypertension; F32.9 Major depressive disorder, single episode, unspecified; K76.0 Fatty (change of) liver, not elsewhere classified; Z91.14 Patient's other noncompliance with medication regimen; E78.5 Hyperlipidemia, unspecified; Z59.0 Homelessness; B35.3 Tinea pedis; B35.1 Tinea unguium; G62.9 Polyneuropathy, unspecified; E87.6 Hypokalemia; F41.9 Anxiety disorder, unspecified; M79.605 Pain in left leg; M79.604 Pain in right leg; N40.0 Benign prostatic hyperplasia without lower urinary tract symptoms; L98.9 Disorder of the skin and subcutaneous tissue, unspecified; F10.20 Alcohol dependence, uncomplicated
CPT/HCPCS: 36415; 71045; 71275; 73630; 75635; 80053; 80061; 80307; 82550; 82553; 83036; 83735; 83880; 84100; 84443; 84484; 85025; 85610; 85730; 88305; 93005; 93306; 96374; 96375; 97110; 97116; 97161; 97530; 99291-25; G0378

== ENCOUNTER 2018-10-14 06:59 | Emergency (ER) | payer MEDICAID | END 2018-10-14 07:45 | disposition home or self-care (01) | LOC: E/R 06:59 → FTE 07:45 | DX: Z76.0 Encounter for issue of repeat prescription (principal) | CPT/HCPCS: 99281; Z7502 ==

== ENCOUNTER 2018-11-02 15:20 | Inpatient (IN) | payer MEDICAID ==
[2018-11-02 15:52] LABS: ADD MAN DIFF? NO
[2018-11-02 16:01] LABS: BASOPHILS % 0.3 % (0.0-2.0); EOSINOPHILS # 0.1 10^3/ul (0.0-0.5); EOSINOPHILS % 1.7 % (0.0-7.0); HEMATOCRIT 42.9 % (42.0-52.0); HEMOGLOBIN 14.6 g/dl (14.0-18.0); LYMPHOCYTES # 1.4 10^3/ul (0.8-2.9); LYMPHOCYTES % 23.5 % (15.0-51.0); MEAN CORPUSCULAR HEMOGLOBIN 32.1 pg (29.0-33.0); MEAN CORPUSCULAR VOLUME 94.3 fl (82.0-101.0); MEAN PLATELET VOLUME 8.6 fl (7.4-10.4); MONOCYTE # 0.5 10^3/ul (0.3-0.9); MONOCYTES % 8.3 % (0.0-11.0); NEUTROPHIL # 3.8 10^3/ul (1.6-7.5); NEUTROPHILS % 65.9 % (39.0-77.0); PLATELET COUNT 151 10^3/UL (140-415); RED BLOOD COUNT 4.55 10^6/ul (4.70-6.10)
[2018-11-02 16:01] LABS: WHITE BLOOD COUNT 5.8 10^3/ul (4.8-10.8)
[2018-11-02 16:10] LABS: ANION GAP 11 (5-13); BLOOD UREA NITROGEN 4 mg/dl (7-20); CALCIUM 9.2 mg/dl (8.4-10.2); CARBON DIOXIDE 27 mmol/L (21-31); CHLORIDE 101 mmol/L (97-110); CREATININE 0.71 mg/dl (0.61-1.24); Estimated GFR > 60 mL/min (>60); GLUCOSE 91 mg/dl (70-220); MAGNESIUM 2.1 mg/dl (1.7-2.5); POTASSIUM 4.1 mmol/L (3.5-5.1); SODIUM 139 mmol/L (135-144)
[2018-11-02 16:11] LABS: PARTIAL THROMBOPLASTIN TIME 26.6 Sec (23.0-35.0); PROTIME 13.3 Sec (11.9-14.9)
[2018-11-02 16:22] LABS: TROPONIN-I < 0.012 ng/ml (0.000-0.120)
[2018-11-02 18:22] LABS: AMPHETAMINE/METHAMPHETAMINE Negative (NEGATIVE); BARBITURATES Negative (NEGATIVE); BENZODIAZEPINES Negative (NEGATIVE); CANNABINOIDS Positive (NEGATIVE); COCAINE Negative (NEGATIVE); OPIATES Negative (NEGATIVE)
[2018-11-02] MEDS ORDERED: NACL 0.9% 3 ML SYG IV (19:30)
[2018-11-02] MEDS ORDERED: DOCUSATE SODIUM 100 MG CAP PO (19:30)
[2018-11-02] MEDS ORDERED: ACETAMINOPHEN 325 MG TAB PO (19:30)
[2018-11-02] MEDS: ONDANSETRON 4 MG INJ IV (20:34)
[2018-11-02] MEDS: morphine 2 MG INJ IV (20:55)
[2018-11-02] MEDS: AMLODIPINE 5 MG TAB PO (20:57)
[2018-11-02] MEDS: LORAZEPAM 2 MG INJ IV (22:14)
[2018-11-03] MEDS: morphine 2 MG INJ IV ×5 (02:37→21:56)
[2018-11-03 06:26] LABS: ADD MAN DIFF? NO
[2018-11-03 06:35] LABS: WHITE BLOOD COUNT 6.4 10^3/ul (4.8-10.8)
[2018-11-03 06:35] LABS: BASOPHILS % 0.3 % (0.0-2.0); EOSINOPHILS # 0.2 10^3/ul (0.0-0.5); EOSINOPHILS % 2.4 % (0.0-7.0); HEMATOCRIT 43.1 % (42.0-52.0); HEMOGLOBIN 14.7 g/dl (14.0-18.0); LYMPHOCYTES # 1.1 10^3/ul (0.8-2.9); LYMPHOCYTES % 17.8 % (15.0-51.0); MEAN CORPUSCULAR HGB CONC 34.1 g/dl (32.0-37.0); MEAN CORPUSCULAR VOLUME 93.7 fl (82.0-101.0); MEAN PLATELET VOLUME 8.8 fl (7.4-10.4); MONOCYTE # 0.8 10^3/ul (0.3-0.9); MONOCYTES % 12.3 % (0.0-11.0); NEUTROPHIL # 4.3 10^3/ul (1.6-7.5); PLATELET COUNT 138 10^3/UL (140-415)
[2018-11-03 08:20] LABS: ALANINE AMINOTRANSFERASE 46 IU/L (13-69); ALBUMIN/GLOBULIN RATIO 1.08; ALKALINE PHOSPHATASE 98 IU/L (42-121); ANION GAP 12 (5-13); ASPARTATE AMINO TRANSFERASE 55 IU/L (15-46); BILIRUBIN,INDIRECT 1.1 mg/dl (0-1.1); BILIRUBIN,TOTAL 1.1 mg/dl (0.2-1.3); BLOOD UREA NITROGEN 6 mg/dl (7-20); CALCIUM 9.4 mg/dl (8.4-10.2); CARBON DIOXIDE 30 mmol/L (21-31); CHLORIDE 95 mmol/L (97-110); CREATININE 0.73 mg/dl (0.61-1.24); Estimated GFR > 60 mL/min (>60); GLUCOSE 90 mg/dl (70-220); MAGNESIUM 1.9 mg/dl (1.7-2.5); PHOSPHORUS 4.2 mg/dl (2.5-4.9); SODIUM 137 mmol/L (135-144); TOTAL PROTEIN 7.7 g/dl (6.1-8.1)
[2018-11-03] MEDS: SERTRALINE 50 MG TAB PO (09:22)
[2018-11-03] MEDS: LORAZEPAM 2 MG INJ IV ×3 (09:22→20:11)
[2018-11-03] MEDS: AMLODIPINE 5 MG TAB PO (09:22)
[2018-11-03] MEDS: INFLUENZA VIRUS VACCINE 0.5 ML (DISPENSING) IM* (09:25)
[2018-11-03] MEDS: ENOXAPARIN 40 MG/0.4 ML SYG SC (10:05)
[2018-11-03] MEDS: MULTIVITAMINS 10 ML, THIAMINE 100 MG, FOLIC ACID 1 MG in SOD CHLORIDE 0.9% 1,000 ML IVPB (11:06)
[2018-11-03] MEDS: HYDROCODONE/APAP (5/325) TAB PO (14:01)
[2018-11-03] MEDS: ONDANSETRON 4 MG INJ IV ×2 (14:07→20:02)
[2018-11-03] MEDS: hydrALAzine 20 MG INJ IV (16:08)
[2018-11-03] MEDS: ZOLPIDEM 5 MG TAB PO (21:56)
[2018-11-04] MEDS: HYDROCODONE/APAP (5/325) TAB PO (00:29)
[2018-11-04] MEDS: LORAZEPAM 2 MG INJ IV ×6 (00:29→21:36)
[2018-11-04] MEDS: morphine 2 MG INJ IV ×4 (02:05→21:37)
[2018-11-04] MEDS: hydrALAzine 20 MG INJ IV (03:17)
[2018-11-04] MEDS: ONDANSETRON 4 MG INJ IV ×3 (04:14→10:34)
[2018-11-04] MEDS: SOD CHLORIDE 0.9% 500 ML IV (04:39)
[2018-11-04] MEDS: HYDROmorphONE 1 MG/ML SYG IV (04:39)
[2018-11-04] MEDS: SERTRALINE 50 MG TAB PO (08:30)
[2018-11-04] MEDS: AMLODIPINE 5 MG TAB PO (08:31)
[2018-11-04] MEDS: ENOXAPARIN 40 MG/0.4 ML SYG SC (08:35)
[2018-11-04] MEDS: MULTIVITAMINS 10 ML, THIAMINE 100 MG, FOLIC ACID 1 MG in SOD CHLORIDE 0.9% 1,000 ML IVPB (08:36)
[2018-11-05] MEDS: LORAZEPAM 2 MG INJ IV ×2 (02:01→05:46)
[2018-11-05] MEDS: morphine 2 MG INJ IV ×2 (02:02→05:46)
[2018-11-05] MEDS: AMLODIPINE 5 MG TAB PO (08:24)
[2018-11-05] MEDS: SERTRALINE 50 MG TAB PO (08:24)
[2018-11-05] MEDS: ENOXAPARIN 40 MG/0.4 ML SYG SC (08:26)
[2018-11-05] MEDS: MULTIVITAMINS 10 ML, THIAMINE 100 MG, FOLIC ACID 1 MG in SOD CHLORIDE 0.9% 1,000 ML IVPB (08:31)
[2018-11-05] MEDS: HYDROCODONE/APAP (5/325) TAB PO (11:27)
== END 2018-11-05 18:46 | disposition home or self-care (01) | DRG 897 ==
LOC: E/R 15:20 → TEL 17:57
DX: F10.239 Alcohol dependence with withdrawal, unspecified (principal); Z91.14 Patient's other noncompliance with medication regimen
CPT/HCPCS: 36415; 70450; 71045; 72125; 80048; 80053; 80307; 82962; 83735; 84100; 84484; 85025; 85610; 85730; 90686; 93005; 97110; 97116; 97161; 97530; 99285-25; G0378

== ENCOUNTER 2018-11-15 09:21 | Inpatient (IN) | payer MEDICAID ==
[2018-11-15 10:31] LABS: ADD MAN DIFF? NO
[2018-11-15 10:33] LABS: ABNORMAL IP MESSAGE 1; BASOPHILS % 0.3 % (0.0-2.0); HEMATOCRIT 42.4 % (42.0-52.0); HEMOGLOBIN 14.6 g/dl (14.0-18.0); LYMPHOCYTES # 0.3 10^3/ul (0.8-2.9); LYMPHOCYTES % 3.6 % (15.0-51.0); MEAN CORPUSCULAR HEMOGLOBIN 32.6 pg (29.0-33.0); MEAN CORPUSCULAR HGB CONC 34.4 g/dl (32.0-37.0); MEAN CORPUSCULAR VOLUME 94.6 fl (82.0-101.0); MEAN PLATELET VOLUME 8.5 fl (7.4-10.4); MONOCYTE # 0.7 10^3/ul (0.3-0.9); NEUTROPHIL # 7.8 10^3/ul (1.6-7.5); NEUTROPHILS % 87.7 % (39.0-77.0); PLATELET COUNT 249 10^3/UL (140-415); POSITIVE DIFF @See below; RED BLOOD COUNT 4.48 10^6/ul (4.70-6.10); RED CELL DISTRIBUTION WIDTH 12.9 % (11.5-14.5)
[2018-11-15 10:33] LABS: WHITE BLOOD COUNT 8.9 10^3/ul (4.8-10.8)
[2018-11-15 10:55] LABS: INR 0.99; PROTIME 13.2 Sec (11.9-14.9)
[2018-11-15 11:08] LABS: ALANINE AMINOTRANSFERASE 54 IU/L (13-69); ALBUMIN 4.5 g/dl (3.3-4.9); ALBUMIN/GLOBULIN RATIO 1.12; ALKALINE PHOSPHATASE 103 IU/L (42-121); ANION GAP 19 (5-13); ASPARTATE AMINO TRANSFERASE 80 IU/L (15-46); BILIRUBIN,INDIRECT 1.2 mg/dl (0-1.1); BILIRUBIN,TOTAL 1.2 mg/dl (0.2-1.3); BLOOD UREA NITROGEN 4 mg/dl (7-20); CALCIUM 9.7 mg/dl (8.4-10.2); CARBON DIOXIDE 25 mmol/L (21-31); CHLORIDE 95 mmol/L (97-110); CREATINE KINASE 254 IU/L (23-200); CREATININE 0.59 mg/dl (0.61-1.24); Estimated GFR > 60 mL/min (>60); GLUCOSE 112 mg/dl (70-220); POTASSIUM 3.9 mmol/L (3.5-5.1); SODIUM 139 mmol/L (135-144); TOTAL PROTEIN 8.5 g/dl (6.1-8.1)
[2018-11-15 11:20] LABS: B-TYPE NATRIURETIC PEPTIDE 147 PG/ML (0-125); TROPONIN-I < 0.012 ng/ml (0.000-0.120)
[2018-11-15 11:21] LABS: CK-MB 2.55 ng/ml (0.0-2.4)
[2018-11-15] MEDS: FUROSEMIDE 40 MG INJ IV (12:00)
[2018-11-15] MEDS: LORAZEPAM 2 MG INJ IV ×5 (12:01→22:49)
[2018-11-15] MEDS: CHLORDIAZEPOXIDE 25 MG CAP PO ×2 (14:07→20:17)
[2018-11-15] MEDS ORDERED: ONDANSETRON 4 MG INJ IV ×2 (15:00→16:00)
[2018-11-15] MEDS ORDERED: ACETAMINOPHEN 325 MG TAB PO (15:00)
[2018-11-15 15:12] LABS: D-DIMER 3696.14 ng/ml (<460)
[2018-11-15] MEDS: CEFAZOLIN 1 GM/50 ML (PMX) 50 ML IVPB (15:31)
[2018-11-15] MEDS: MULTIVITAMINS 10 ML, THIAMINE 100 MG, FOLIC ACID 1 MG, MAGNESIUM SULFATE 2 GM in SOD CH... IV (15:31)
[2018-11-15] MEDS ORDERED: NACL 0.9% 3 ML SYG IV (16:00)
[2018-11-15] MEDS ORDERED: LEVALBUTEROL (NEB) 0.63 MG/3 ML AMP HHN (16:00)
[2018-11-15 16:09] LABS: AMPHETAMINE/METHAMPHETAMINE Negative (NEGATIVE); BARBITURATES Negative (NEGATIVE); BENZODIAZEPINES Negative (NEGATIVE); CANNABINOIDS Positive (NEGATIVE); COCAINE Negative (NEGATIVE); OPIATES Negative (NEGATIVE)
[2018-11-15 16:21] LABS: C-REACTIVE PROTEIN 1.2 mg/dl (0.0-0.9)
[2018-11-15 17:28] LABS: ERYTHROCYTE SEDIMENTATION RATE 26 mm/Hr (0-20)
[2018-11-15] MEDS: LISINOPRIL 5 MG TAB PO (18:23)
[2018-11-15] MEDS: hydrALAzine 20 MG INJ IV (20:17)
[2018-11-15] MEDS: TRIMETHOPRIM/SULFAMETHOX (DS) TAB PO (20:17)
[2018-11-16] MEDS: LORAZEPAM 2 MG INJ IV ×3 (03:11→17:03)
[2018-11-16 05:37] LABS: ADD MAN DIFF? NO
[2018-11-16 05:44] LABS: WHITE BLOOD COUNT 5.8 10^3/ul (4.8-10.8)
[2018-11-16 05:44] LABS: BASOPHILS % 0.3 % (0.0-2.0); EOSINOPHILS # 0.1 10^3/ul (0.0-0.5); EOSINOPHILS % 1.9 % (0.0-7.0); HEMATOCRIT 43.2 % (42.0-52.0); HEMOGLOBIN 14.9 g/dl (14.0-18.0); LYMPHOCYTES # 0.8 10^3/ul (0.8-2.9); LYMPHOCYTES % 13.4 % (15.0-51.0); MEAN CORPUSCULAR HEMOGLOBIN 32.6 pg (29.0-33.0); MEAN CORPUSCULAR HGB CONC 34.5 g/dl (32.0-37.0); MEAN CORPUSCULAR VOLUME 94.5 fl (82.0-101.0); MEAN PLATELET VOLUME 8.9 fl (7.4-10.4); MONOCYTE # 0.6 10^3/ul (0.3-0.9); MONOCYTES % 10.4 % (0.0-11.0); NEUTROPHIL # 4.2 10^3/ul (1.6-7.5); NEUTROPHILS % 73.7 % (39.0-77.0); PLATELET COUNT 229 10^3/UL (140-415); RED BLOOD COUNT 4.57 10^6/ul (4.70-6.10)
[2018-11-16 07:03] LABS: CHOL/HDL RATIO 3.2 RATIO; HDL CHOLESTEROL 67 mg/dl (28-71); LDL CHOLESTEROL,CALCULATED 131 mg/dl; TRIGLYCERIDES 88 mg/dl (0-149)
[2018-11-16 07:03] LABS: CHOLESTEROL 216 mg/dl (100-200)
[2018-11-16 07:07] LABS: ALANINE AMINOTRANSFERASE 37 IU/L (13-69); ALBUMIN 3.7 g/dl (3.3-4.9); ALBUMIN/GLOBULIN RATIO 1.02; ALKALINE PHOSPHATASE 82 IU/L (42-121); ANION GAP 12 (5-13); ASPARTATE AMINO TRANSFERASE 55 IU/L (15-46); BILIRUBIN,INDIRECT 1.5 mg/dl (0-1.1); BILIRUBIN,TOTAL 1.5 mg/dl (0.2-1.3); BLOOD UREA NITROGEN 6 mg/dl (7-20); CALCIUM 9.2 mg/dl (8.4-10.2); CARBON DIOXIDE 29 mmol/L (21-31); CHLORIDE 96 mmol/L (97-110); CREATININE 0.69 mg/dl (0.61-1.24); Estimated GFR > 60 mL/min (>60); GLUCOSE 95 mg/dl (70-220); SODIUM 137 mmol/L (135-144); TOTAL PROTEIN 7.3 g/dl (6.1-8.1)
[2018-11-16 07:47] LABS: PHOSPHORUS 4.8 mg/dl (2.5-4.9)
[2018-11-16 07:47] LABS: CK INDEX 0.7; CK-MB 1.22 ng/ml (0.0-2.4); CREATINE KINASE 171 IU/L (23-200); MAGNESIUM 2.2 mg/dl (1.7-2.5); TROPONIN-I 0.014 ng/ml (0.000-0.120)
[2018-11-16] MEDS: SERTRALINE 50 MG TAB PO (08:50)
[2018-11-16] MEDS: CHLORDIAZEPOXIDE 25 MG CAP PO ×3 (08:50→20:47)
[2018-11-16] MEDS: THIAMINE 100 MG TAB PO (08:50)
[2018-11-16] MEDS: TRIMETHOPRIM/SULFAMETHOX (DS) TAB PO ×2 (08:50→20:48)
[2018-11-16] MEDS: FOLIC ACID 1 MG TAB PO (08:51)
[2018-11-16] MEDS: LISINOPRIL 5 MG TAB PO (08:51)
[2018-11-16] MEDS: ENOXAPARIN 40 MG/0.4 ML SYG SC (09:02)
[2018-11-16] MEDS: POTASSIUM CHLORIDE (SR) 20 MEQ TAB PO (10:44)
[2018-11-16] MEDS ORDERED: LOPERAMIDE 2 MG CAP PO (17:30)
[2018-11-16] MEDS: LORAZEPAM 1 MG TAB PO ×2 (17:30→22:04)
[2018-11-16] MEDS: FUROSEMIDE 40 MG TAB PO ×2 (17:39→18:05)
[2018-11-16] MEDS: LACTOBACILLUS RHAMNOSUS CAP PO (20:46)
[2018-11-16] MEDS: POTASSIUM CHLORIDE 20 MEQ POWDER FOR ORAL SOLN PO (20:49)
[2018-11-17 05:23] LABS: ADD MAN DIFF? NO
[2018-11-17 05:25] LABS: BASOPHILS % 0.5 % (0.0-2.0); EOSINOPHILS # 0.2 10^3/ul (0.0-0.5); EOSINOPHILS % 3.5 % (0.0-7.0); HEMATOCRIT 40.5 % (42.0-52.0); HEMOGLOBIN 14.1 g/dl (14.0-18.0); LYMPHOCYTES # 1.1 10^3/ul (0.8-2.9); LYMPHOCYTES % 18.5 % (15.0-51.0); MEAN CORPUSCULAR HEMOGLOBIN 33.1 pg (29.0-33.0); MEAN CORPUSCULAR HGB CONC 34.8 g/dl (32.0-37.0); MEAN CORPUSCULAR VOLUME 95.1 fl (82.0-101.0); MEAN PLATELET VOLUME 8.9 fl (7.4-10.4); MONOCYTE # 0.6 10^3/ul (0.3-0.9); MONOCYTES % 10.5 % (0.0-11.0); NEUTROPHIL # 3.8 10^3/ul (1.6-7.5); NEUTROPHILS % 66.3 % (39.0-77.0); PLATELET COUNT 201 10^3/UL (140-415); RED BLOOD COUNT 4.26 10^6/ul (4.70-6.10)
[2018-11-17 05:25] LABS: WHITE BLOOD COUNT 5.7 10^3/ul (4.8-10.8)
[2018-11-17 05:44] LABS: INR 0.98; PROTIME 13.1 Sec (11.9-14.9)
[2018-11-17 05:57] LABS: TROPONIN-I < 0.012 ng/ml (0.000-0.120)
[2018-11-17 05:59] LABS: ALANINE AMINOTRANSFERASE 39 IU/L (13-69); ALBUMIN 3.8 g/dl (3.3-4.9); ALBUMIN/GLOBULIN RATIO 1.05; ALKALINE PHOSPHATASE 84 IU/L (42-121); ANION GAP 10 (5-13); ASPARTATE AMINO TRANSFERASE 50 IU/L (15-46); BILIRUBIN,INDIRECT 0.9 mg/dl (0-1.1); BILIRUBIN,TOTAL 0.9 mg/dl (0.2-1.3); BLOOD UREA NITROGEN 5 mg/dl (7-20); CALCIUM 9.1 mg/dl (8.4-10.2); CARBON DIOXIDE 26 mmol/L (21-31); CHLORIDE 99 mmol/L (97-110); Estimated GFR > 60 mL/min (>60); GLUCOSE 103 mg/dl (70-220); POTASSIUM 3.5 mmol/L (3.5-5.1); SODIUM 135 mmol/L (135-144); TOTAL PROTEIN 7.4 g/dl (6.1-8.1)
[2018-11-17 06:01] LABS: MAGNESIUM 1.9 mg/dl (1.7-2.5)
[2018-11-17] MEDS: LORAZEPAM 1 MG TAB PO ×3 (06:01→21:29)
[2018-11-17] MEDS: THIAMINE 100 MG TAB PO (08:14)
[2018-11-17] MEDS: FOLIC ACID 1 MG TAB PO (08:14)
[2018-11-17] MEDS: POTASSIUM CHLORIDE 20 MEQ POWDER FOR ORAL SOLN PO ×2 (08:14→21:28)
[2018-11-17] MEDS: LACTOBACILLUS RHAMNOSUS CAP PO ×2 (08:14→21:29)
[2018-11-17] MEDS: TRIMETHOPRIM/SULFAMETHOX (DS) TAB PO ×2 (08:14→21:29)
[2018-11-17] MEDS: LISINOPRIL 10 MG TAB PO (08:14)
[2018-11-17] MEDS: SERTRALINE 50 MG TAB PO (08:15)
[2018-11-17] MEDS: ENOXAPARIN 40 MG/0.4 ML SYG SC (08:20)
[2018-11-17] MEDS: CHLORDIAZEPOXIDE 25 MG CAP PO ×3 (08:25→21:29)
[2018-11-18] MEDS: LORAZEPAM 1 MG TAB PO ×2 (06:07→13:49)
[2018-11-18] MEDS: LISINOPRIL 10 MG TAB PO (09:24)
[2018-11-18] MEDS: SERTRALINE 50 MG TAB PO (09:24)
[2018-11-18] MEDS: FOLIC ACID 1 MG TAB PO (09:25)
[2018-11-18] MEDS: THIAMINE 100 MG TAB PO (09:25)
[2018-11-18] MEDS: TRIMETHOPRIM/SULFAMETHOX (DS) TAB PO (09:25)
[2018-11-18] MEDS: CHLORDIAZEPOXIDE 25 MG CAP PO ×2 (09:25→13:49)
[2018-11-18] MEDS: LACTOBACILLUS RHAMNOSUS CAP PO (09:25)
[2018-11-18] MEDS: POTASSIUM CHLORIDE 20 MEQ POWDER FOR ORAL SOLN PO (09:25)
[2018-11-18] MEDS: ENOXAPARIN 40 MG/0.4 ML SYG SC (09:26)
== END 2018-11-18 16:10 | disposition home or self-care (01) | DRG 300 ==
LOC: 6WM 17:43 → E/R 09:21 → PP2 11-17 20:36 → 6WM 14:32
DX: I87.303 Chronic venous hypertension (idiopathic) without complications of bilateral lower extremity (principal); L03.116 Cellulitis of left lower limb; L03.115 Cellulitis of right lower limb; F10.230 Alcohol dependence with withdrawal, uncomplicated; G62.9 Polyneuropathy, unspecified; F10.20 Alcohol dependence, uncomplicated; I10 Essential (primary) hypertension; F32.9 Major depressive disorder, single episode, unspecified; F41.9 Anxiety disorder, unspecified; F12.10 Cannabis abuse, uncomplicated; R00.0 Tachycardia, unspecified; E87.6 Hypokalemia; Y90.2 Blood alcohol level of 40-59 mg/100 ml; B95.8 Unspecified staphylococcus as the cause of diseases classified elsewhere; R22.43 Localized swelling, mass and lump, lower limb, bilateral; Z59.0 Homelessness
CPT/HCPCS: 36415; 71045; 80053; 80061; 80307; 82550; 82553; 83735; 83880; 84100; 84443; 84484; 85025; 85378; 85610; 85651; 85730; 86140; 87040-91; 87081; 93005; 93970; 96374; 96375; 96376; 97116; 97161; 97530; 99285-25; G0378